=== PATIENT | female | born 1995 | race African-American/Black ===

== ENCOUNTER 2016-10-20 20:27 | Inpatient (IN) ==
[2016-10-20] MEDS ORDERED: BUTORPHANOL 2 MG/ML VIAL IV PRN (21:39)
[2016-10-20] MEDS ORDERED: ONDANSETRON 4 MG/2 ML VIAL IV PRN (21:39)
[2016-10-20] MEDS ORDERED: ACETAMINOPHEN 325 MG TABLET PO PRN (21:39)
[2016-10-20] MEDS: LACTATED RINGERS 1,000 ML IV SCH (21:50)
[2016-10-20 22:02] LABS: Basophils % 0.2 % (0.0-0.8); Eosinophils % 0.2 % (0.00-10.9); Hematocrit 31.7 VOL% (35.7-47.0); Hemoglobin 11.2 GM/DL (12.0-16.0); Immature Granulocytes % 1.7 %; Immature Granulocytes Absolute 0.17 #; Mean Corpuscular HGB Conc 35.3 GM/DL (32-36); Mean Corpuscular Hemoglobin 29 PG (27-34); Mean Corpuscular Volume 83.2 FL (87-102); Mean Platelet Volume 10.3 FL (9.6-12.0); Monocytes % 9.7 % (1.7-12.7); Neutrophils # 6.9 10*3/uL (1.4-7.4); Neutrophils % 68.2 % (38.7-73.9); Platelet Count 262 T/CUMM (130-400); Red Blood Count 3.81 MC/CUMM (3.8-5.5); Red Cell Distribution Width 14.2 % (9.3-17.3); White Blood Count 10.1 T/CUMM (4-12)
[2016-10-21] LABS: Apearance,Urine CLEAR (Clear); Bilirubin,Urine Negative (Negative); Blood, Urine Negative (Negative); Glucose,Urine (UA) Negative (Negative); Ketones,Urine Negative (Negative); Mucus,Urine Occasional /LPF (Occasional); Nitrite,Urine Negative (Negative); Protein,Urine Negative; RBC,Urine <1 /HPF (0-4); Squamous Epithelial Cell,Urine Occasional /HPF (0-10); Urine Color Yellow (Yellow); Urine Specific Gravity 1.011 (1.001-1.035); Urine Urobilinogen < 2.0 EU/DL (0.2-1.0); WBC,Urine 1 /HPF (0-6)
[2016-10-21] MEDS ORDERED: LIDOCAINE 1% 50 ML VIAL ONE (04:01)
[2016-10-21] MEDS ORDERED: miSOPROStol 200 MCG TABLET ONE (04:01)
[2016-10-21] MEDS ORDERED: OXYTOCIN/LR 20 UNIT/1,000 ML BAG IV ONE ×3 (04:01→10:38)
[2016-10-21] MEDS ORDERED: MEPERIDINE 50 MG/1 ML VIAL IV PRN (05:03)
[2016-10-21] MEDS: LACTATED RINGERS 1,000 ML IV SCH (05:14)
[2016-10-21] MEDS ORDERED: fentaNYL 100 MCG/2 ML VIAL ONE (06:07)
[2016-10-21] MEDS ORDERED: miSOPROStol 200 MCG TABLET RECTAL ONE (08:14)
[2016-10-21] MEDS ORDERED: ESTROGENS (CONJ) VAG CREAM 30 GM TUBE VAG SCH ×2 (09:00→21:00)
--- NOTE | 2016-10-21 09:22 | Anesthesia Post-Op ---
Anesthesia Post OP - Post Ansesthetic Evaluation Patient seen in post op: Yes Resp: within normal limits CV: within normal limits Mental: within normal limits Temp: within normal limits [id number]: within normal limits Nausea and Vomiting: within normal limits Pain: within normal limits
[2016-10-21] MEDS ORDERED: MEPERIDINE 50 MG/1 ML VIAL IM PRN (10:06)
[2016-10-21] MEDS ORDERED: ONDANSETRON 4 MG/2 ML VIAL IM PRN (10:08)
[2016-10-21] MEDS: DOCUSATE SODIUM 100 MG CAPSULE PO SCH ×2 (10:22→21:45)
[2016-10-21] MEDS ORDERED: BENZOCAINE 20%/MENTHOL 0.5% SPRAY 56 GM CAN TOP PRN (11:48)
[2016-10-21] MEDS: IBUPROFEN 800 MG TABLET PO PRN (12:04)
[2016-10-21] MEDS: oxyCODONE/ACETAMINOPHEN 5-325 MG TABLET PO PRN ×2 (16:55→21:45)
[2016-10-22] MEDS: oxyCODONE/ACETAMINOPHEN 5-325 MG TABLET PO PRN ×5 (03:07→22:10)
[2016-10-22 06:34] LABS: Basophils % 0.2 % (0.0-0.8); Eosinophils % 0.1 % (0.00-10.9); Hematocrit 22.9 VOL% (35.7-47.0); Hemoglobin 7.9 GM/DL (12.0-16.0); Immature Granulocytes % 0.7 %; Lymphocytes # 2.1 10*3/uL (1.4-4.0); Lymphocytes % 15.2 % (21.3-54.2); Mean Corpuscular HGB Conc 34.5 GM/DL (32-36); Mean Corpuscular Hemoglobin 29 PG (27-34); Mean Corpuscular Volume 84.2 FL (87-102); Mean Platelet Volume 10.3 FL (9.6-12.0); Monocytes # 1.2 10*3/uL (0.11-0.8); Monocytes % 8.4 % (1.7-12.7); Neutrophils # 10.5 10*3/uL (1.4-7.4); Neutrophils % 75.4 % (38.7-73.9); Platelet Count 204 T/CUMM (130-400); Red Blood Count 2.72 MC/CUMM (3.8-5.5); Red Cell Distribution Width 14.5 % (9.3-17.3); White Blood Count 13.9 T/CUMM (4-12)
[2016-10-22 07:07] LABS: Microcytosis Slight
[2016-10-22] MEDS: IBUPROFEN 800 MG TABLET PO PRN ×2 (07:51→18:13)
[2016-10-22] MEDS: FERROUS SULFATE 325 MG TABLET PO SCH ×2 (08:13→21:52)
[2016-10-22] MEDS: DOCUSATE SODIUM 100 MG CAPSULE PO SCH ×2 (08:15→21:52)
--- NOTE | 2016-10-22 12:19 | History and Physical Update ---
History and Physical Update - Dictation Physical: refer to scanned H&P - Physical Exam Mental Status: alert and oriented Heart: regular rate and rhythm Lung: clear to auscultation Abdomen: within normal limits Vitals: within normal limits History and Physical Changes: Pt presented to L&D in active labor at 39+ weeks. care without complications.
--- NOTE | 2016-10-22 12:31 | Operative Note ---
Date of procedure: 10/21/16 Pre-op diagnosis: 39+ weeks in active labor Post-op diagnosis: same (+ asynclitic presentation of vertex) Procedure: Vacuum-assisted ; 2nd degree MLE with 4th degree extension, repaired Patient progressed to complete and pushing with only IV sedation. Labor spinal was placed by anesthesia department due to significant maternal discomfort and exhaustion once she was pushing. Pitocin augmentation was started after this and pt delivered a viable female over 2nd degree MLE via Kiwi and MityVac vacuum assistance . Kiwi was applied due to significant molding and no further descent of vertex. Pt understood BRCA of vacuum delivery and wished to proceed. There was good descent with Kiwi to a position but then the Kiwi would not adhere with the thick hair of the baby. Mity Vac was then applied and the head was very easily delivered with minimal traction with the MityVac. Baby was then delivered without difficulty. Inspection of the baby's head revealed there was molding to the side of the vertex suggesting an asynclitic presentation. Baby was bulb suctioned on the perineum. Cord was doubly clamped and cut adn baby was placed on mother's belly. Cord blood was collected and placenta was delivered intact. The episiotomy had extended to a fourth degree laceration involving about 3cm of rectal mucosa. The rectal mucosa was carefully repaired with interrupted stitches of 3-0 Vicryl. The rectovaginal fascia was identified and carefully repaired over the rectal mucosa. The transverse perineus muscle and sheath were carefully reapproximated with figure of 8 stitches of 2-0 Chromic with good approximation and hemostasis. Second degree MLE was repaired with 2-0 and 3-0 Chromic in the usual fashion. Fundus is firm. Estimated blood loss 500 mL. Complications none. Patient is stable and the baby is stable. Anesthesia: other (Labor spinal) Surgeon / Physician: Phyllis Greenberg Estimated blood loss: other (500cc) Specimens: other (placenta to path; cord blood to lab) Condition: stable Disposition: no change Results - Labs CBC & BMP: 10/22/16 06:13 Discharge Plan - Discharge Medications No Action Vit No.130/Iron/Folic [ Tablet] 1 tablet PO DAILY Ferrous Sulfate [Iron] 1 tablet PO DAILY - Follow Up or Referral Follow Up: Phyllis Greenberg DO [Physician] - 12/01/16 9:15 am - Forms/Instructions Instructions: Depression (GEN), Perineal Care (DC), Vaginal Delivery (DC), Bleeding (DC)
--- NOTE | 2016-10-22 12:34 | OB/GYN Progress Note ---
Assessment and Plan (1) Vacuum extractor delivery, delivered Status: Acute Assessment and plan: Routine care. Current Visit: Yes (2) Fourth degree laceration of perineum, delivered, current hospitalization Status: Acute Assessment and plan: Discussed with pt recommendation for stool softeners for next 2 wks and to avoid constipation. She voices understanding. 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 Expected perineal discomfort. Exam SNOW TECHNICIAN - Constitutional Vitals: Vital Signs Temp Pulse Resp BP Pulse Ox 10/22/16 11:48 97.9 F 98 H 20 121/67 99 10/22/16 07:55 98.9 F 94 H 20 110/64 99 10/22/16 05:00 18 10/22/16 04:00 98.5 F 98 H 18 119/61 99 10/22/16 02:00 18 10/22/16 01:00 18 10/22/16 00:00 97.2 F L 93 H 20 136/83 99 10/21/16 20:00 98.2 F 98 H 18 132/76 99 10/21/16 15:43 97.1 F L 96 H 20 113/63 98 General appearance: normal weight, no acute distress - Head Head exam: Present: normal inspection, normocephalic - Eye Eye exam: Present: EOMI - Respiratory Respiratory exam: Present: clear to auscultation bilaterally - Cardiovascular Cardiovascular exam: Present: regular rate and rhythm - GI/Abdominal GI/Abdominal exam: Present: soft (fundus firm, nontender) - Extremities Exam Extremities exam: Present: normal inspection - Neurological Exam Neurological exam: Present: alert, oriented X3 - Psychiatric Psychiatric exam: Present: normal affect, normal mood - Skin Skin exam: Present: normal color, warm Results - Labs CBC & BMP: 10/22/16 06:13 Lab Results: I have reviewed the past 24 hour labs
--- NOTE | 2016-10-22 12:37 | Discharge Summary ---
Hospital Course - Hospital Course Hospital Course: Pt presented in active labor. She delivered without complication. She did have a fourth degree extension of her 2nd degree MLE at delivery which was repaired . Her course was unremarkable except that she did very well. Dr. Martin is covering for the weekend. Diagnosis - Discharge Diagnosis (1) Vacuum extractor delivery, delivered Status: Acute (2) Fourth degree laceration of perineum, delivered, current hospitalization Status: Acute Specialty Discharge - Follow Up or Referrals Follow up with: Phyllis Greenberg DO [Physician] - 12/01/16 9:15 am Discharge Plan - Discharge Data Disposition: Disch To Home/Self Care Condition at Discharge: Stable Discharge Diet: regular diet Activity: other (pelvic rest x 6 wks) Hygiene: may shower Weight Bearing at Discharge: full weight bearing Driving: no restrictions (if not taking narcotics) Contact your physician if you experience:: fever over 101, Difficulty voiding, Redness or swelling, Nausea/Vomiting, Shortness of breath, Bleeding, pain uncontrolled by pain medications - Discharge Medications New oxyCODONE/ACETAMINOPHEN 5-325 [Percocet 5-325] 1 tablet PO Q4H PRN #30 tablet PRN Reason: Pain Moderate (4-7) Ibuprofen Tab [Motrin Tab] 800 mg PO Q6H PRN #30 tablet PRN Reason: Pain No Action Vit No.130/Iron/Folic [ Tablet] 1 tablet PO DAILY Ferrous Sulfate [Iron] 1 tablet PO DAILY - Follow Up or Referral Follow Up: Phyllis Greenberg DO [Physician] - 12/01/16 9:15 am - Forms/Instructions Instructions: Depression (GEN), Perineal Care (DC), Vaginal Delivery (DC), Bleeding (DC) Exam - Constitutional Vitals: Period Temp Pulse Resp BP Sys/Andrews Pulse Ox Last 24 Hr 97.1 F-98.9 F 93-98 18-20 110-136/61-83 98-99 General appearance: normal weight, no acute distress - Head Head exam: Present: normal inspection, normocephalic - Eye Eye exam: Present: EOMI Discharge Results Labs on day of discharge: Labs from last 24 hours 10/22/16 06:13 WBC 13.9 H D RBC 2.72 L D Hgb 7.9 L D Hct 22.9 L MCV 84.2 L MCH 29 MCHC 34.5 RDW 14.5 Plt Count 204 D MPV 10.3 Neut % (Auto) 75.4 H Lymph % (Auto) 15.2 L [place] % (Auto) 8.4 Eos % (Auto) 0.1 Baso % (Auto) 0.2 Neut # (Auto) 10.5 H Lymph # (Auto) 2.1 [place] # (Auto) 1.2 H Eos # (Auto) 0.0 Baso # (Auto) 0.0 Immature Gran % 0.7 Nucleated RBC % 0.0 Immature Gran # 0.10 Nucleated RBCs # 0.00 Immature Plt Fraction 0.0 Microcytosis Slight DS: Provider Date of admission: 10/20/16 21:40 Primary care physician: . No PCP Attending physician on admission: Phyllis Greenberg DO Consults: 10/20/16 21:40 Consult to Anesthesiology [CONS] Routine Consulting Provider: Reason for Anesthesiology: Epidural Consult Comment: Epidural for pain managment Discharging clinician: Phyllis Greenberg DO Expected date of discharge: 10/23/16
[2016-10-23] MEDS: oxyCODONE/ACETAMINOPHEN 5-325 MG TABLET PO PRN (07:37)
[2016-10-23] MEDS: IBUPROFEN 800 MG TABLET PO PRN (07:37)
[2016-10-23 08:07] VITALS: BP 117/64
[2016-10-23] MEDS: FERROUS SULFATE 325 MG TABLET PO SCH (09:00)
[2016-10-23] MEDS: DOCUSATE SODIUM 100 MG CAPSULE PO SCH (09:00)
[2016-10-23] MEDS ORDERED: MEASLES/MUMPS/RUBELLA VACCINE 0.5 ML VIAL SUBCUT ONE (10:43)
[2016-10-23] MEDS ORDERED: DIPH/TET/ACEL PERT BOOSTER VACCINE 0.5 ML VIAL IM ONE (10:43)
--- NOTE | 2016-10-25 12:16 | Pathology Report from [facility] ---
[facility] ACCESSION # : [id number] PATIENT NAME : Sam Peterson ORDERING DR : MIGUEL HERNANDEZ DO CLINICAL HX: IUP @ 39+ weeks - Labor - Vaginal bleeding POST-OP DX: Same SPECIMEN INFO: Placenta GROSS DESCRIPTION: Received fresh labeled with the patients name and is a 544 gram placenta measuring 17.4 x 16.9 x 2.8 cm. membrane are pink-jerry and translucent with adherent clotted blood noted. The surface is dark blue luu. The umbilical cord is pericentrally inserted, contains three vessels and is inserted 2.1 cm from the margin. The maternal surface is hemorrhagic with a peripheral area of fibrin present measuring up to 1.9 cm with peripheral clotted blood as well. No gross abnormalities on sectioning. Sections submitted: A membranes and cord, B and maternal surfaces. DIAGNOSIS FOR SAM PETERSON: Three vessel umbilical cord.Unremarkable placental membranes.Third trimester placental chorionic villi with focal infarction and scattered microcalcifications.Areas of maternal surface hemorrhage and fibrin suggestive of partial abruption. COLLECTED DATE: 10/22/2016 [facility] REPORT DATE: 10/25/2016 ELECTRONICALLY SIGNED BY: Matthew Akhtar M.D. 10/25/2016 - 9:46:34 [facility]
== END 2016-10-23 12:40 | disposition home or self-care (01) | DRG 775 ==
LOC: N.LDOUT 20:27 → N.LD 20:28 → N.OB 10-21 11:43
PROVIDERS: ADMIT Obstetrics & Gynecology; ATTEND Obstetrics & Gynecology